=== PATIENT | female | born 1990 | race Caucasian/White ===

== ENCOUNTER 2019-08-21 14:57 | Emergency (ER) | payer BC ==
--- NOTE | 2019-08-21 13:27 | CR ---
EXAMINATION: Ankle Min 3V Rt SEX: Female AGE: 28 years CLINICAL HISTORY: 28-year-old female who sustained "bimalleolar fracture/dislocation right ankle" slipping on the ice this morning. Right ankle reduction. INTERPRETATION: 1. Only 5 mm "reduction" i.e. only partial shift of the distal tibia back over the dome of the talus since acute injury film 10:10 AM. 2. Spiral lateral malleolar fracture distal right fibula and transverse medial malleolar fracture fragment (malleolar fragments remain appropriately oriented to the underlying talus). 3. Pronounced bimalleolar soft tissue swelling and ankle joint effusion. 4. No fracture or dislocation of the tarsal bones right hindfoot.
--- NOTE | 2019-08-21 14:46 | CR ---
EXAMINATION: Ankle 2V Rt SEX: Female AGE: 28 years CLINICAL HISTORY: Right ankle pain (second attempt post reduction) INTERPRETATION: 1. Progressive improvement i.e. now only 9 mm separation between the medial malleolus and dome of the talus with near optimal relocation and alignment of the medial malleolar fracture fragment (vs 18 mm acute injury film and 13 mm "reduction"). 2. Closer to anatomic realignment of the distal fibular fracture (shaft lateral malleolus). 3. Bimalleolar soft tissue swelling, ankle joint effusion and now nondisplaced, small posterior malleolar fracture fragment evident.
[~2019-08-21 14:57] MED LIST: HYDROmorphone 0.5 MG/0.5 ML Syringe IVPUSH ONE; Sodium Chloride 0.9% 1,000 ML IV ONE; fentaNYL 100 MCG/2 ML SDV IVPUSH ONE
[2019-08-21] MEDS ORDERED: Lactated Ringers 1,000 ML IV ONE (14:58)
[2019-08-21] MEDS ORDERED: Propofol 200 MG/20 ML SDV IV ONE (14:58)
--- NOTE | 2019-08-21 15:14 | EDM.PDOC ---
ED HPI GENERAL MEDICAL PROBLEM - General Chief Complaint: Lower Extremity Injury/Pain Stated Complaint: COMING FROM CLINIC Time Seen by Provider: 08/21/19 12:00 Source of Information: Reports: Patient, Provider History Limitations: Reports: No Limitations - History of Present Illness INITIAL COMMENTS - FREE TEXT/NARRATIVE: This 28 yo female patient reports to the ED from the [facility] due to right ankle pain and deformity. The patient did have x-ray's done by the [facility] and was diagnosed with a bimaleolar fracture. The patient was brought to the ED for conscious sedation and joint reduction. The patient reports she slipped on ice Wednesday night. The patient reports she attempted to walk on the injured foot. Onset Date: 08/19/19 Duration: Constant Location: Reports: Lower Extremity, Right Quality: Reports: Ache, Dull Severity: Moderate Improves with: Reports: None Worsens with: Reports: None Context: Reports: Other Associated Symptoms: Reports: No Other Symptoms Right Leg Pain Score (Numeric/FACES): 8 - Related Data Allergies Allergy/AdvReac Type Severity Reaction Status Date / Time No Known Allergies Allergy Verified 08/21/19 11:55 Home Meds: Home Meds . [No Known Home Meds] 08/21/19 [History] Past Medical History HEENT History: Reports: None Cardiovascular History: Reports: None Respiratory History: Reports: None Gastrointestinal History: Reports: None Genitourinary History: Reports: None [employer] History: Reports: None Musculoskeletal History: Reports: None Neurological History: Reports: None Psychiatric History: Reports: None Endocrine/Metabolic History: Reports: None Hematologic History: Reports: None Immunologic History: Reports: None Oncologic (Cancer) History: Reports: None Dermatologic History: Reports: None - Infectious Disease History Infectious Disease History: Reports: None - Past Surgical History Head Surgeries/Procedures: Reports: None Social & Family History - Tobacco Use Smoking Status *Q: Never Smoker Second Hand Smoke Exposure: No - Caffeine Use Caffeine Use: Reports: Coffee - Recreational Drug Use Recreational Drug Use: No Review of Systems - Review of Systems Review Of Systems: Comprehensive ROS is negative, except as noted in HPI. ED EXAM, GENERAL - Physical Exam Exam: See Below Exam Limited By: No Limitations General Appearance: Alert, WD/WN, Moderate Distress Ears: Normal External Exam, Normal Canal, Hearing Grossly Normal, Normal TMs Nose: Normal Inspection, Normal Mucosa, No Blood Throat/Mouth: Normal Inspection, Normal Lips, Normal Teeth, Normal Gums, Normal Oropharynx, Normal Voice, No Airway Compromise Head: Atraumatic, Normocephalic Neck: Normal Inspection, Supple, Non-Tender, Full Range of Motion Respiratory/Chest: No Respiratory Distress, Lungs Clear, Normal Breath Sounds, No Accessory Muscle Use, Chest Non-Tender Cardiovascular: Normal Peripheral Pulses, Regular Rate, Rhythm, No Edema, No Gallop, No JVD, No Murmur, No Rub GI/Abdominal: Normal Bowel Sounds, Soft, Non-Tender, No Organomegaly, No Distention, No Abnormal Bruit, No Mass (Female) Exam: Deferred Rectal (Female) Exam: Deferred Back Exam: Normal Inspection, Full Range of Motion, NT Extremities: Leg Pain (right ankle pain, swelling and deformity) Neurological: Alert, Oriented, CN II-XII Intact, Normal Cognition Psychiatric: Normal Affect, Normal Mood ED TRAUMA EXTREMITY PROCEDURES - Joint Reduction Right Ankle Sedation: Conscious Sedation Pre-Procedure NV Status: Normal Post-Procedure NV Status: Normal Technique: Traction/Counter Traction Number of Attempts: 2 Post-Reduction Imaging: Acceptably Reduced Joint Reduction Complications: Yes Joint Reduction Complication Description: Initial attempt at reduction showed some improvement, but ortho suggested an additional attempt was appropriate. After the second attempt, the joint was acceptably reduced. The patient was splinted by a custom posterior splint and a sugar tong splint. Course - Vital Signs Last Recorded V/S: Last Vital Signs Temp 36.1 C 08/21/19 11:49 Pulse 84 08/21/19 15:30 Resp 16 08/21/19 15:30 BP 119/72 08/21/19 15:30 Pulse Ox 95 08/21/19 15:30 - Orders/Labs/Meds Meds: Medications Discontinued Medications Generic Name Dose Route Start Last Admin Trade Name Freq PRN Reason Stop Dose Admin Fentanyl 50 mcg 08/21/19 12:35 08/21/19 12:43 Sublimaze IVPUSH 08/21/19 12:36 50 mcg ONETIME ONE Administration Hydromorphone HCl 0.5 mg 08/21/19 14:03 08/21/19 14:11 Dilaudid IVPUSH 08/21/19 14:04 0.5 mg ONETIME ONE Administration Sodium Chloride 1,000 mls @ 200 mls/hr 08/21/19 12:35 Normal Saline IV 08/21/19 17:34 .BOLUS ONE Departure - Departure Time of Disposition: 14:57 Disposition: Home, Self-Care 01 Condition: Fair Clinical Impression: Bimalleolar ankle fracture Qualifiers: Encounter type: initial encounter Fracture type: closed Laterality: right Qualified Code(s): S82.841A - Displaced bimalleolar fracture of right lower leg , initial encounter for closed fracture - Discharge Information *PRESCRIPTION DRUG MONITORING PROGRAM REVIEWED*: Not Applicable *COPY OF PRESCRIPTION DRUG MONITORING REPORT IN PATIENT YURI: Not Applicable Forms: ED Department Discharge Care Plan Goals: The patient was advised of the examination and x-ray results during the visit. During the visit, a consult call was placed to Dr. Dangelo. After the second attempt at reduction, Dr. Dangelo advised to keep the patient non-weight bearing and to follow-up with him on . The patient came to the ED with crutches and was advised to continue to use them. The patient was given a script for BringMeThat () #20 to take 1 by mouth every 8 hours. The patient will be called with a follow-up appointment with Dr. Dangelo on . The patient was advised to rest, ice and elevate her extremity until follow-up with Dr. Dangelo. If the patient has any additional symptoms or concerns, the patient should either return to the emergency department or visit her primary care facility. Sepsis Event Note - Evaluation Sepsis Screening Result: No Definite Risk - Focused Exam Vital Signs: Vital Signs Temp Pulse Resp BP Pulse Ox 08/21/19 15:30 84 16 119/72 95 08/21/19 11:49 36.1 C 92 16 125/77 99 Date Exam was Performed: 08/21/19 Time Exam was Performed: 18:36
== END 2019-08-21 15:35 | disposition home or self-care (01) ==
LOC: DL.ED 14:57
DX: S82.841A Displaced bimalleolar fracture of right lower leg, initial encounter for closed fracture (principal); W01.0XXA Fall on same level from slipping, tripping and stumbling without subsequent striking against object, initial encounter
CPT/HCPCS: 27810; 73600; 73610; 96374; 96375; 99152; 99283; J1170; J2704; J3010; J7120; 01462

== ENCOUNTER 2023-06-17 17:11 | Inpatient (IN) | payer BC ==
[2023-06-17] MEDS ORDERED: Carboprost Tromethamine 250 MCG/1 ML Amp IM PRN ×2 (17:50→20:28)
[2023-06-17] MEDS ORDERED: Oxytocin 10 Units/1 ML SDV IM PRN (17:50)
[2023-06-17] MEDS ORDERED: Methylergonovine 0.2 MG Tab PO PRN (17:50)
[2023-06-17] MEDS ORDERED: Tranexamic Acid 1,000 MG in Sodium Chloride 0.9% 100 ML IV PRN ×2 (17:50→20:28)
[2023-06-17] MEDS ORDERED: ceFAZolin 2 GM Vial IVPUSH ONE (17:50)
[2023-06-17] MEDS ORDERED: Sodium Chloride 0.9% 10 ML Syringe FLUSH PRN (17:50)
[2023-06-17] MEDS ORDERED: Citric Acid/Sodium Citrate Solution 30 ML Cup PO ONE (17:50)
[2023-06-17] MEDS ORDERED: Lactated Ringers 1,000 ML IV SCH ×2 (18:00→20:30)
[2023-06-17] MEDS ORDERED: Oxytocin/Normal Saline 30 UNIT/500 ML BAG IV SCH (18:00)
[2023-06-17 18:07] LABS: BASOPHILS PERCENT AUTO 0.1 % (0.0-1.0); EOSINOPHILS PERCENT AUTO 0.3 % (1.0-3.0); HEMATOCRIT 35.9 % (37.0-47.0); HEMOGLOBIN 11.9 g/dL (12.0-16.0); LYMPHOCYTES PERCENT AUTO 17.4 % (20.5-50.1); MEAN CORPUSCULAR HEMOGLOBIN 28.9 pg (27.0-34.0); MEAN CORPUSCULAR HGB CONC 33.1 g/dL (33.0-35.0); MEAN CORPUSCULAR VOLUME 87.1 fL (80-100); MONOCYTES PERCENT AUTO 7.7 % (2-8); NEUTROPHILS PERCENT AUTO 74.5 % (42.2-75.2); PLATELET COUNT,PLT 196 10^3/uL (150-450); RED BLOOD CELL COUNT 4.12 10^6/uL (4.2-5.4); WHITE BLOOD CELL COUNT,WBC 15.3 10^3/uL (5.0-10.0)
[2023-06-17] MEDS: Lactated Ringers 1,000 ML IV SCH ×2 (18:30→23:25)
[2023-06-17] MEDS ORDERED: Naloxone 2 MG/2 ML Syringe IVPUSH PRN (20:28)
[2023-06-17] MEDS ORDERED: diphenhydrAMINE 50 MG/ML SDV IVPUSH PRN (20:28)
[2023-06-17] MEDS ORDERED: Docusate Sodium 100 MG Cap PO PRN (20:28)
[2023-06-17] MEDS ORDERED: Benzocaine/Menthol 20%-0.5% Spray 78 GM Cannister TOP PRN (20:28)
[2023-06-17] MEDS ORDERED: Misoprostol 400 MCG (4 X 100 MCG TAB) RECTAL PRN (20:28)
[2023-06-17] MEDS ORDERED: Acetaminophen/oxyCODONE 325-5 MG Tab PO PRN (20:28)
[2023-06-17] MEDS ORDERED: Methylergonovine 0.2 MG/1 ML Amp IM PRN (20:28)
[2023-06-17] MEDS ORDERED: diphenhydrAMINE 50 MG/ML SDV IV PRN (20:28)
[2023-06-17] MEDS ORDERED: Witch Hazel Medicated Pads 100/Jar TOP PRN (20:28)
[2023-06-17] MEDS ORDERED: Acetaminophen 325 MG Tab PO PRN (20:28)
[2023-06-17] MEDS ORDERED: ePHEDrine 50 MG/ML SDV IVPUSH PRN (20:28)
[2023-06-17] MEDS ORDERED: Morphine 2 MG/ML SYRINGE IVPUSH PRN (20:28)
[2023-06-17] MEDS ORDERED: Ondansetron 4 MG/2 ML SDV IVPUSH PRN (20:28)
[2023-06-17] MEDS ORDERED: Ketorolac 30 MG/ML SDV IVPUSH SCH (20:30)
[2023-06-18] MEDS ORDERED: Ketorolac 30 MG/ML SDV IVPUSH ONE (00:58)
[2023-06-18] MEDS: Simethicone 80 MG Tab.Chew PO SCH ×5 (06:12→20:55)
[2023-06-18] MEDS: Sodium Chloride 0.9% 10 ML Syringe FLUSH SCH ×3 (06:12→22:49)
[2023-06-18 06:30] LABS: HEMATOCRIT 28.8 % (37.0-47.0); HEMOGLOBIN 9.4 g/dL (12.0-16.0)
[2023-06-18] MEDS: Lactated Ringers 1,000 ML IV SCH (07:14)
[2023-06-18] MEDS: Ketorolac 30 MG/ML SDV IVPUSH SCH ×3 (07:15→18:33)
[2023-06-18] MEDS ORDERED: [UNRECOGNIZED DRUG - REMARK] PO SCH (09:00)
[2023-06-18] MEDS: Prenatal Multivitamin with Calcium/Folic Acid/Iron Tab PO SCH (09:28)
[2023-06-19] MEDS: Ibuprofen 800 MG Tab PO PRN ×2 (01:27→13:22)
[2023-06-19] MEDS: Acetaminophen/oxyCODONE 325-5 MG Tab PO PRN ×4 (01:28→13:20)
[2023-06-19] MEDS: Prenatal Multivitamin with Calcium/Folic Acid/Iron Tab PO SCH (08:56)
[2023-06-19] MEDS: Simethicone 80 MG Tab.Chew PO SCH ×2 (08:56→13:21)
[2023-06-19] MEDS: Sodium Chloride 0.9% 10 ML Syringe FLUSH SCH (11:41)
== END 2023-06-19 14:30 | disposition home or self-care (01) | DRG 540 ==
LOC: DL.OBCHECK 17:11 → DL.MS 17:50 → INTOOBSV 17:50 → DL.MS 19:20 → OBSVTOIN 19:20 → DL.OB 20:07
PROVIDERS: ADMIT Student in an Organized Health Care Education/Training Program; ATTEND Student in an Organized Health Care Education/Training Program
PROC: 10D00Z1 Extraction of Products of Conception, Low, Open Approach (ICD-10-PCS; principal; 2023-06-17 19:00)
DX: O60.14X0 Preterm labor third trimester with preterm delivery third trimester, not applicable or unspecified (principal); O45.93 Premature separation of placenta, unspecified, third trimester; O90.81 Anemia of the puerperium; O98.52 Other viral diseases complicating childbirth; B00.9 Herpesviral infection, unspecified; D62 Acute posthemorrhagic anemia; Z98.890 Other specified postprocedural states; Z3A.36 36 weeks gestation of pregnancy; Z37.0 Single live birth; Z79.899 Other long term (current) drug therapy
CPT/HCPCS: 36415; 51702; 59025; 76815; 85014; 85018; 85025; 86850; 86900; 86901; 86920; 86922; A9270-GY; J1885; J2590; J3490; J7120